=== PATIENT | female | born 1950 | race Caucasian/White ===

== ENCOUNTER 2016-11-01 08:46 | Emergency (ER) | payer MEDICARE ==
[2016-11-01 10:06] LABS: Hematocrit 43.8 % (37.0-47.0); Hemoglobin 14.7 gm/dL (12.5-16.0); Mean Cell Volume 87.1 fl (78-100); Mean Corpuscular Hemoglobin 29.2 pg (27-31); Mean Corpuscular Hgb Conc 33.6 g/dl (32-36); Mean Platelet Volume 9.8 fl (6.0-9.5); Neutrophil # 5.6 K/mm3 (1.3-6.0); Neutrophil % 64.7 % (42-75.0); Platelet Count 288 K/mm3 (150-450); Red Blood Count 5.03 M/mm3 (4.2-5.4); Red Cell Distribution Width 14.9 % (11.5-14.0); White Blood Count 8.6 K/mm3 (4.0-10.5)
[2016-11-01 10:17] LABS: Albumin * 3.5 gm/dl (3.4-5.0); Anion Gap 14.1 mmol/L (6.8-13.8); BUN/Creatinine Ratio 17.3 (9.0-21.6); Bilirubin, Total 0.5 mg/dL (0.0-1.1); Ca. Corrected For Albumin 8.9 mg/dL (8.4-10.2); Calcium * 8.8 mg/dL (7.9-10.9); Carbon Dioxide 23.1 mmol/L (24-32.6); Potassium 4.2 mmol/L (3.4-4.6); Total Protein 8.4 gm/dL (6.2-8.2)
--- OUTSIDE RECORDS SUMMARY | 2016-11-01 10:18 | XMS REPORT | Continuity of Care Document ---
:1950 Author Organization [facility] ([facility]) Address [address] [place] [address] Phone [phone] Care Team Providers Name Role Phone Rafal Gutierrez Primary Care Provider [phone] Source Comments This disclosure is being made pursuant to the Care Everywhere program, applicable federal and state laws, and may not contain all informaitonavailable regarding this patient.[facility] ([facility]) Active Allergies and Adverse Reactions Allergen Noted Date Severity Reactions Comments Codeine 01/15/2013 Urticaria (Hives) Oxycodone Urticaria (Hives) Current Medications Prescription Sig. Disp. Refills Start Date End Date Status aspirin 81 mg chewable Take 1 tablet 30 tablet 11 06/23/2015 Active tablet (81 mg total) by mouth daily nitroglycerin Place 1 tablet 25 tablet 11 06/23/2015 Active (NITROSTAT) 0.4 mg SL (0.4 mg total) tablet under the tongue every 5 minutes as needed sucralfate 1000 mg Take 1 tablet 40 tablet 0 01/21/2016 Active tablet (1,000 mg total) by mouth before meals and at bedtime. polyethylene Take as directed 4000 mL 0 03/16/2016 Active glycol-electrolyte the evening (GOLYTELY) suspension before your procedure. FLUoxetine 20 mg Take 3 capsules 270 capsule 3 06/21/2016 Active capsule (60 mg total) by mouth daily. clopidogrel 75 mg Take 1 tablet 90 tablet 11 06/30/2016 Active tablet (75 mg total) by mouth daily. simvastatin 40 mg Take 1 tablet 90 tablet 11 07/03/2016 Active tablet (40 mg total) by mouth every evening. metoPROLol tartrate 25 Take 1 tablet 180 tablet 11 09/25/2016 Active mg tablet (25 mg total) by mouth 2 times daily. traZODone 150 mg Take 1 tablet 90 tablet 11 09/25/2016 Active tablet (150 mg total) by mouth at bedtime. benazepril 40 mg Take 1 tablet 90 tablet 4 09/27/2016 Active tablet (40 mg total) by mouth daily. isosorbide mononitrate Take 1 tablet 90 tablet 4 09/27/2016 Active 30 mg CR tablet (30 mg total) by mouth every morning. Active Problems Problem Noted Date Encounter for screening colonoscopy 01/21/2016 Encounter for screening mammogram for malignant neoplasm of breast 01/21/2016 Glucose intolerance (impaired glucose tolerance) 05/21/2014 Lung nodules 12/14/2010 Overview: Noted 2007. Stable as of 06/29 Chronic left shoulder pain 08/15/2010 Overview: Subacromial bursitis, acromio-clavicular joint arthritis, chronic rotator cuff dysfunction and impingement syndrome. Trochanteric Bursitis, left 12/05/2007 CAD in [place] artery 09/20/2007 Overview: GONZALEZ to LCx in 2005 STEMI 01/2014: s/p PROMUS 2.75x20 to proximal LAD (80% LDPA and 100% mid RCA) Coronary angiogram in 03/2016: unchanged Depression 06/26/2006 Acquired deformity R foot 11/29/2004 Lupus erythematosus 02/13/2001 Overview: vs. Undifferentiated connective tissue disease. Manifestations: SLE- type rash, polyarthritis, Raynaud's Serology: Positive JONATHAN. Negative ds DNA, [employer]/Sm, SSA, SSB. Rx history: hydroxychloroquine since . Pure hypercholesterolemia 12/19/2000 Essential hypertension 12/19/2000 Resolved Problems Problem Noted Date Resolved Date LLQ abdominal pain 01/21/2016 03/14/2016 Chronic systolic heart failure 03/31/2014 03/31/2014 Overview: LVEF 45% (01/2014) STEMI (ST elevation myocardial infarction) 01/31/2014 03/31/2014 Diarrhea 11/14/2011 04/04/2013 Screening 11/14/2011 03/31/2014 Tobacco dependence 03/25/2009 03/14/2016 Overview: Dreams on Chantix Most Recent Encounters Date Type Specialty Providers Description 09/27/2016 Refill General Internal Rafal Gutierrez Dx: Essential Medicine JMD hypertension (Primary Dx) 09/25/2016 Refill General Internal Rafal Gutierrez Dx: Coronary artery Medicine MD Derick disease involving [place] coronary artery of [place] heart without angina pectoris (Primary Dx) 08/08/2016 Orders Only Care Coordination Rafal Gutierrez MD Immunizations Name Dates Previously Given Next Due Influenza, PF 08/09/2010 Influenza, high dose 06/21/2016,09/14/2015 Influenza, quadrivalent PF 06/11/2014 Influenza, unspecified 07/06/2008,08/15/2007,06/26/2006,06/22 Pneumococcal Conjugate, PCV13 (Prevnar 02/16/2015 13) Pneumococcal Polysaccharide, PPSV23 10/24/2013,08/15/2007 (Pneumovax 23) Td, adult unspecified 06/08/2004 Tdap 11/14/2011 Zoster, live (Zostavax) 04/04/2013 Social History Tobacco Use Types Packs/Day Years Used Date Former Smoker Cigarettes 1 3 Quit: 05/12/2014 Smokeless Tobacco: Former User Tobacco Cessation:Ready to Quit: Yes; Counseling Given: Yes Comments: Alcohol Use Drinks/Week oz/Week Comments No 1 Glasses of wine 0.0 generally consumed all at once 6-8 Cans of beer Last Filed Vital Signs Vital Sign Reading Time Taken Blood Pressure 138/78 07/11/2016 10:47 AM EVENT DESIGNER Pulse 68 07/11/2016 10:47 AM EVENT DESIGNER Temperature 37 C (98.6 F) 06/21/2016 12:58 PM CDT Respiratory Rate 14 07/11/2016 10:47 AM EVENT DESIGNER Height 1.6 m (5' 3") 07/11/2016 10:47 AM EVENT DESIGNER Weight 89.812 kg (198 lb) 07/11/2016 10:47 AM EVENT DESIGNER Body Mass Index 35.08 07/11/2016 10:47 AM EVENT DESIGNER Oxygen Saturation 94% 03/20/2016 11:51 AM CDT Plan of Care Patient Goal Type Goal Lifestyle Other Date Type Specialty Providers Description 07/17/2017 Appointment Heart and Vascular Patricia Genao, Subj: Appointment Scheduled [address] [place] [address] [phone] (Fax) Health Maintenance Due Date Last Done Comments Hepatitis B Vaccine (1 of 3 1950 - Primary Series) Mammogram 02/02/2017 02/03/2016, 02/03/2016 Additional history (Completed outside this exists hospital or clinic), 01/21/2016 Lipid Disorder Screening 02/01/2019 02/01/2014, 10/01/2012, Additional history 11/14/2011 exists Colonoscopy 08/09/2020 08/09/2010 (Declined) Td Vaccine 11/13/2021 11/14/2011, 06/08/2004 HCV Screening Completed 06/09/1999, 12/16/1998 Osteoporosis Screening (DXA Completed 09/29/2003 Bone Density) Tdap Vaccine Completed 11/14/2011 Zoster Vaccine Completed 04/04/2013 Pneumococcal Vaccine Completed 02/16/2015, 10/24/2013, 08/15/2007 Influenza Vaccine: Seasonal Completed 06/21/2016, 09/14/2015, Additional history 06/11/2014 exists Results from Last 3 Months FECAL OCCULT BLOOD - IMMUNOCHEMICAL (HEMOCCULT ICT) (09/08/2016 8:00 AM) Component Value Range Fecal Occult Blood, Hemoccult ICT Negative Negative Specimen Stool
[2016-11-01 11:49] VITALS: BP 136/78
--- NOTE | 2016-11-01 13:02 | ERNOTE ---
Head Injury HPI - Narrative Date of Service: 11/01/16 - General Injury to: face Time Seen by Provider: 11/01/16 09:40 Source: patient Exam Limitations: no limitations - Immun/Allergies/Home Medications Allergies/Adverse Reactions: Allergies Allergy/AdvReac Type Severity Reaction Status Date / Time No Known Allergies Allergy Verified 11/01/16 08:58 Home Medications: HOME MEDICATIONS Benazepril HCl [Lotensin] 40 mg PO DAILY 08/27/14 [Last Taken Unknown] Clopidogrel Bisulfate [Plavix] 75 mg PO DAILY 08/27/14 [Last Taken Unknown] Isosorbide Mononitrate [Imdur] 30 mg PO DAILY 08/27/14 [Last Taken Unknown] Metoprolol Succinate [Toprol Xl] 25 mg PO DAILY 08/27/14 [Last Taken Unknown] Simvastatin [Zocor] 40 mg PO HS 08/27/14 [Last Taken Unknown] Trazodone HCl [Oleptro ER] 150 mg PO HS 08/27/14 [Last Taken Unknown] Amox Tr/Potassium Clavulanate [Augmentin 875-125 Tablet] 1 tab PO Q12H #20 tab 11/01/16 [Last Taken Unknown] Aspirin [Aspirin Enteric Coated] 81 mg PO DAILY 11/01/16 [Last Taken Unknown] Fluoxetine HCl 20 mg PO DAILY 11/01/16 [Last Taken Unknown] Ibuprofen [Motrin] 1 tab PO Q8H PRN #60 tab 11/01/16 [Last Taken Unknown] - History of Present Illness Narrative: Presents with c/o painful swelling to left side of her face just anterior to her left ear. Ongoing for 2 days. Denies any fever of chills. Occurred: other - 2 days ago. Review of Systems - Review of Systems Constitutional: Present: no symptoms reported EYE: Present: no symptoms reported ENT: Present: no symptoms reported Respiratory: Present: no symptoms reported Cardiology: Present: no symptoms reported Gastrointestinal/Abdominal: Present: no symptoms reported Genitourinary: Present: no symptoms reported Musculoskeletal: Present: no symptoms reported Skin: Present: See HPI Neurological: Present: no symptoms reported Endocrine: Present: no symptoms reported Hematologic/Lymphatic: Present: no symptoms reported Psych: Present: no symptoms reported All Other Systems: All systems neg except as marked - Patient's Past Medical History Patient History - Medical: Depression, GERD, Hypothyroidism Patient History - Surgical Procedures: Hysterectomy, T & A, Other - Social History Living Situations: home Alcohol Use: none Drug Use: none Physical Exam - Physical Exam General Appearance: Present: wd/wn, alert, no apparent distress Eye Exam: Normal inspection: bilateral, PERRL: bilateral, EOMI: bilateral Ears, Nose, Throat: Present: normal ENT inspection, normal pharynx Neck: Present: supple, full range of motion - Tenders swelling of left parotid gland, warm to touch, mild erythema. , other Respiratory: Present: no respiratory distress, normal breath sounds, no accessory muscle use, chest nontender, lungs clear Cardiovascular/Chest: Present: regular rate, rhythm, no murmur, normal peripheral pulses Neurological Exam: Present: alert, oriented, normal mood/affect, no motor/ sensory deficits ED Progress - Vital Signs Vital Signs: Vital Signs 11/01/16 11/01/16 08:55 11:48 Temperature 37.0 C Pulse Rate 68 62 Respiratory 12 18 Rate Blood Pressure 110/71 136/78 O2 Sat by Pulse 93 95 Oximetry - Progress/Reassessment Chief Complaint: Neck Pain/Injury Departure Clinical Impression: Parotitis, acute, Mass of upper lobe of right lung - Departure Disposition: Home self-care Condition: Good Instructions: Parotitis, [id number] Additional Instructions: A lung mass was incidentally found in your right upper lung. Please follow up with your PCP to revaluate this mass with a CT scan of your chest. We are unable to perform a chest CT this moment due to recent IV contrast given you for your parotid swelling. Prescriptions: Amox Tr/Potassium Clavulanate [Augmentin 875-125 Tablet] 1 tab PO Q12H #20 tab Ibuprofen [Motrin] 1 tab PO Q8H PRN #60 tab PRN Reason: Pain
== END 2016-11-01 12:46 | disposition home or self-care (01) ==
LOC: ER 08:46
DX: K11.21 Acute sialoadenitis (principal); R91.8 Other nonspecific abnormal finding of lung field; F32.9 Major depressive disorder, single episode, unspecified

== ENCOUNTER 2017-07-16 13:30 | Inpatient (IN) | payer MEDICARE ==
--- NOTE | 2017-07-16 14:19 | ERNOTE ---
Dyspnea - General Presenting Symptoms: shortness of breath Time Seen by Provider: 07/16/17 13:45 Source: patient, family Exam Limitations: no limitations - Immun/Allergies/Home Medications Immunizations: IMMUNIZATION HX Immunizations Up to Date Yes History of Influenza Vaccine Yes Hx Pneumococcal Vaccination Yes Allergies/Adverse Reactions: Allergies No Known Allergies Allergy (Verified 07/16/17 13:39) Home Medications: HOME MEDICATIONS Clopidogrel Bisulfate [Plavix] 75 mg PO DAILY 08/27/14 [Last Taken Unknown] Isosorbide Mononitrate [Imdur] 30 mg PO DAILY 08/27/14 [Last Taken Unknown] Metoprolol Succinate [Toprol Xl] 25 mg PO DAILY 08/27/14 [Last Taken Unknown] Simvastatin [Zocor] 40 mg PO HS 08/27/14 [Last Taken Unknown] traZODone HCL [Oleptro ER] 150 mg PO HS 08/27/14 [Last Taken Unknown] Aspirin [Aspirin Enteric Coated] 81 mg PO DAILY 11/01/16 [Last Taken Unknown] FLUoxetine HCL [Fluoxetine HCl] 20 mg PO DAILY 11/01/16 [Last Taken Unknown] Ibuprofen [Motrin] 1 tab PO Q8H PRN #60 tab 11/01/16 [Last Taken Unknown] Albuterol Sulfate [Proair Respiclick] 90 mcg IH TID 07/16/17 [Last Taken Unknown ] Magnesium Oxide [Mgo] 400 mg PO DAILY 07/16/17 [Last Taken Unknown] Nitroglycerin 0.4 mg SL PRN PRN 07/16/17 [Last Taken Unknown] - History of Present Illness Narrative: Patient presents with progressive shortness of breath over the last week. While she has known lung cancer that had undergone radiation treatment certainly this year, she has not undergone any chemotherapy. She states she is feeling a little bit presyncopal as well. Severity: moderate Initiating event: Reports: none Frequency of episodes: Reports: occassional episodes Modifying Factors (Worsens): Reports: activity Associated Symptoms-Dyspnea: Reports: other - feeling faint Review of Systems - Review of Systems Constitutional: Present: See HPI EYE: Present: no symptoms reported ENT: Present: no symptoms reported Respiratory: Present: shortness of breath, cough Cardiology: Present: no symptoms reported Gastrointestinal/Abdominal: Present: no symptoms reported Genitourinary: Present: no symptoms reported Musculoskeletal: Present: no symptoms reported Skin: Present: no symptoms reported Neurological: Present: no symptoms reported Endocrine: Present: no symptoms reported Hematologic/Lymphatic: Present: no symptoms reported Psych: Present: no symptoms reported - Patient's Past Medical History Patient History - Medical: Depression, GERD, Hypothyroidism Patient History - Cardiac/Respiratory: Hypertension, Hyperlipidemia Patient History - Cancer: Lung Patient History - Surgical Procedures: Cardiac stent, Hysterectomy, T & A, Other Patient History - Other: Immunosuppresive Tx >3mo LMP (females 10-50): post - Social History Living Situations: home Psych History: No pertinent hx Smoking Status: Never smoker Alcohol Use: none Drug Use: none - Immunizations Immunizations Up to Date: Yes Hx Pneumococcal Vaccination: Yes History of Influenza Vaccine: Yes Physical Exam - Physical Exam General Appearance: Present: wd/wn, alert, mild distress Head Exam: Present: normal inspection Eye Exam: Normal inspection: bilateral, PERRL: bilateral Ears, Nose, Throat: Present: normal ENT inspection, H, normal pharynx Neck: Present: normal inspection, nontender Respiratory: Present: no accessory muscle use, chest nontender, respiratory distress - mild although she feels somewhat better on 2 L of O2, rales - questionable right upper lobe, rhonchi - in the bases Cardiovascular/Chest: Present: regular rate, rhythm, no murmur, normal peripheral pulses Gastrointestinal/Abdominal: Present: normal bowel sounds, nontender, nondistended, soft, no organomegaly Rectal Exam: Present: deferred Back Exam: Present: normal inspection, normal range of motion Extremity Exam: Present: normal inspection, non-tender, no edema, normal range of motion Neurological Exam: Present: alert, oriented, normal mood/affect Skin Exam: Present: normal color, warm/dry Lymphatic Exam: Present: no adenopathy ED Progress - Results and Orders Patient's Lab Results:: I have reviewed the patient's lab results. - Vital Signs Patient's Vital Signs:: I have reviewed the patient's vital signs. Vital Signs: Vital Signs 07/16/17 07/16/17 13:32 13:39 Temperature 37.3 C 37.3 C Pulse Rate 100 100 Respiratory 22 H 22 H Rate Blood Pressure 132/77 132/77 O2 Sat by Pulse 92 92 Oximetry - EKG EKG: NSR - X-Ray X-Ray #1 X-Ray: chest Interpretation: Reviewed by me - Progress/Reassessment Chief Complaint: Dyspnea Plan - Plan Plan: Good discussion with both radiologist and Dr. Gupta with best how to manage this patient. Patient has a known lung mass and appears to have scarring post radiation with what appears to be an obstructive pneumonitis. Both pneumonia and PE can not be excluded. Patient has markedly reduced her fluid intake which has put her into stage III renal insufficiency, making a chest CT with IV contrast problematic. Patient will need to be admitted for both her COPD exacerbation, obstructive pneumonitis/pneumonia and possible PE. Subcutaneous Lovenox was given to the patient here in the emergency department, blood cultures were undertaken and IV Rocephin was given. Departure Clinical Impression: Obstructive pneumonia COPD (chronic obstructive pulmonary disease) Qualifiers: COPD type: COPD with acute exacerbation Qualified Code(s): J44.1 - Chronic obstructive pulmonary disease with (acute) exacerbation Lung cancer Qualifiers: Laterality: right Lung location: upper lobe of lung Qualified Code(s): C34.11 - Malignant neoplasm of upper lobe, right bronchus or lung - Departure Disposition: [facility] Condition: Fair Referrals: Jessica Garcia DO [Primary Care Provider] -
[2017-07-16 14:31] LABS: Hematocrit 36.3 % (37.0-47.0); Hemoglobin 12.2 gm/dL (12.5-16.0); Mean Cell Volume 85.2 fl (78-100); Mean Corpuscular Hemoglobin 28.6 pg (27-31); Mean Corpuscular Hgb Conc 33.6 g/dl (32-36); Mean Platelet Volume 9.5 fl (6.0-9.5); Neutrophil # 5.9 K/mm3 (1.3-6.0); Platelet Count 332 K/mm3 (150-450); Red Blood Count 4.26 M/mm3 (4.2-5.4); Red Cell Distribution Width 15.1 % (11.5-14.0); White Blood Count 7.9 K/mm3 (4.0-10.5)
[2017-07-16 14:55] LABS: ALT 28 U/L (19-67); AST 36 U/L (0-48); Albumin * 3.1 gm/dl (3.4-5.0); Alkaline Phosphatase * 110 U/L (50-170); Anion Gap 18.5 mmol/L (6.8-13.8); BUN/Creatinine Ratio 19.7 (9.0-21.6); Bilirubin, Total 0.4 mg/dL (0.0-1.1); Blood Urea Nitrogen 29 mg/dL (3-23); Ca. Corrected For Albumin 9.7 mg/dL (8.4-10.2); Calcium * 9.3 mg/dL (7.9-10.9); Carbon Dioxide 20.4 mmol/L (24-32.6); Chloride 102 mmol/L (97-106); Glucose * 129 mg/dL (70-110); Magnesium 1.9 mg/dL (1.2-2.8); Potassium 3.9 mmol/L (3.4-4.6); Sodium 137 mmol/L (132-142); Total Protein 8.7 gm/dL (6.2-8.2); Troponin I Less than 0.017 ng/ml (0.00-0.10)
[2017-07-16] MEDS ORDERED: ENOXAPARIN SODIUM 80 MG/0.8 ML DISP.SYRIN SC ONE ×2 (15:18→15:24)
[2017-07-16] MEDS ORDERED: NORMAL SALINE 1,000 ML IV ONE (15:19)
[2017-07-16] MEDS ORDERED: NITROGLYCERIN 0.4 MG/TAB BTL SL PRN (21:11)
--- NOTE | 2017-07-16 21:19 | HP ---
Chief Complaint - Chief Complaint Date of Service: 07/16/17 Time of Service: 21:18 Chief Complaint: Dyspnea History of Present Illness: 67 years old female adm to the hospital with reports of non productive cough, sudden shortness of breath and chest pain that worsen with deep breathing x 3 days. PMH significant for Right lung cancer, S/p chemo and radiation completed treatment was February 2017. COPD, HTN and hyperlipidemia. pt stated today her s/s got worst she called her Oncologist who instructed her to come to the ER for CXR , due to suspicion for pneumonia. In ER D-Dimer 1.53, pt has and elevated cre 1.47 will hydrate and attempt to obtain CT chest tomorrow. see radiologist report for CXR. Lovenox was given in ER due to suspicion for PE and Rocephin given due to COPD exacerbation. Plan of care discussed with pt she verbalized understanding and agrees. - Patient's Past Medical History Patient History - Medical: No pertinent hx Patient History - Cardiac/Respiratory: COPD, Hypertension, Hyperlipidemia Patient History - Cancer: Lung Patient History - Surgical Procedures: Cardiac stent, Hysterectomy, T & A Patient History - Other: Immunosuppresive Tx >3mo LMP (females 10-50): Menopausal - Family History Mother Family History - Medical: Family History - Cardiac/Respiratory: Hypertension, Hyperlipidemia Family History - Cancer: No pertinent family hx Father Family History - Medical: , No pertinent hx Family History - Cardiac/Respiratory: Myocardial Infarction Family History - Cancer: No pertinent family hx - Social History Living Situations: significant other Abuse History: No History of abuse Psych History: Hx of Depression Smoking Status: Never smoker Have you smoked in the past 12 months: No Do you dip or chew tobacco: No Alcohol Use: none Drug Use: none - Immunizations Immunizations Up to Date: Yes Hx Pneumococcal Vaccination: Yes History of Influenza Vaccine: Yes Allergies/Adverse Reactions: Allergies Allergy/AdvReac Type Severity Reaction Status Date / Time No Known Allergies Allergy Verified 07/16/17 16:54 Home Medications: HOME MEDICATIONS Clopidogrel Bisulfate [Plavix] 75 mg PO DAILY 08/27/14 [Last Taken 07/15/17 09: 00] Isosorbide Mononitrate [Imdur] 30 mg PO DAILY 08/27/14 [Last Taken 07/15/17 09: 00] Metoprolol Succinate [Toprol Xl] 25 mg PO BID 08/27/14 [Last Taken 07/15/17 21: 00] Simvastatin [Zocor] 40 mg PO HS 08/27/14 [Last Taken 07/15/17 21:00] traZODone HCL [Oleptro ER] 150 mg PO HS 08/27/14 [Last Taken Unknown] Aspirin [Aspirin Enteric Coated] 81 mg PO DAILY 11/01/16 [Last Taken 07/15/17 09 :00] FLUoxetine HCL [Fluoxetine HCl] 20 mg PO DAILY 11/01/16 [Last Taken 07/15/17 09: 00] Ibuprofen [Motrin] 1 tab PO Q8H PRN #60 tab 11/01/16 [Last Taken Unknown] Albuterol Sulfate [Proair Respiclick] 90 mcg IH TID 07/16/17 [Last Taken Unknown ] Magnesium Oxide [Mgo] 400 mg PO DAILY 07/16/17 [Last Taken 07/15/17 09:00] Nitroglycerin 0.4 mg SL PRN PRN 07/16/17 [Last Taken Unknown] Exam - Exam Vital Signs: Vital Signs - Last Taken Temp 36.9 C 07/16/17 18:57 Pulse 88 07/16/17 18:57 Resp 28 H 07/16/17 18:57 BP 114/62 07/16/17 18:57 Pulse Ox 91 07/16/17 18:57 Diagnostic Studies: Laboratory Results WBC 7.9 K/mm3 (4.0-10.5) 07/16/17 14:12 RBC 4.26 M/mm3 (4.2-5.4) 07/16/17 14:12 Hgb 12.2 gm/dL (12.5-16.0) L 07/16/17 14:12 Hct 36.3 % (37.0-47.0) L 07/16/17 14:12 MCV 85.2 fl (78-100) 07/16/17 14:12 MCH 28.6 pg (27-31) 07/16/17 14:12 MCHC 33.6 g/dl (32-36) 07/16/17 14:12 RDW 15.1 % (11.5-14.0) H 07/16/17 14:12 Plt Count 332 K/mm3 (150-450) 07/16/17 14:12 MPV 9.5 fl (6.0-9.5) 07/16/17 14:12 Immature Gran % (Auto) 0.40 % (0.001-0.429) 07/16/17 14:12 Immature Gran # (Auto) 0.03 K/mm3 (0.000-0.0310) 07/16/17 14:12 Neutrophils % 74.0 % (42-75.0) 07/16/17 14:12 Lymphocytes % 12.8 % (20-51) L 07/16/17 14:12 Monocytes % 10.9 % (0.0-9) H 07/16/17 14:12 Eosinophils % 1.6 % (0.0-3.0) 07/16/17 14:12 Basophils % 0.3 % (0.0-1.0) 07/16/17 14:12 Nucleated RBC % 0.0 k/mm3 (0-1) 07/16/17 14:12 Neutrophils # 5.9 K/mm3 (1.3-6.0) 07/16/17 14:12 Lymphocytes # 1.0 k/mm3 (1.5-3.5) L 07/16/17 14:12 Monocytes # 0.9 k/mm3 (0.0-1.0) 07/16/17 14:12 Eosinophils # 0.1 k/mm3 (0.0-0.7) 07/16/17 14:12 Absolute Basophils 0.0 k/mm3 (0.0-0.1) 07/16/17 14:12 D-Dimer 1.53 mg/L (0.19-0.49) H 07/16/17 14:25 Sodium 137 mmol/L (132-142) 07/16/17 14:25 Plasma Sodium 137 mmol/L (130-142) 07/16/17 14:25 Potassium 3.9 mmol/L (3.4-4.6) 07/16/17 14:25 Chloride 102 mmol/L (97-106) 07/16/17 14:25 Carbon Dioxide 20.4 mmol/L (24-32.6) L 07/16/17 14:25 Anion Gap 18.5 mmol/L (6.8-13.8) H 07/16/17 14:25 BUN 29 mg/dL (3-23) H D 07/16/17 14:25 Creatinine 1.47 mg/dL (0.4-1.4) H D 07/16/17 14:25 Est GFR (Non-Af Amer) 37 mL/min (60-130) L D 07/16/17 14:25 BUN/Creatinine Ratio 19.7 (9.0-21.6) 07/16/17 14:25 Random Glucose 129 mg/dL (70-110) H 07/16/17 14:25 Calcium 9.3 mg/dL (7.9-10.9) 07/16/17 14:25 Calcium Adj for Albumin 9.7 mg/dL (8.4-10.2) 07/16/17 14:25 Magnesium 1.9 mg/dL (1.2-2.8) 07/16/17 14:25 Total Bilirubin 0.4 mg/dL (0.0-1.1) 07/16/17 14:25 AST 36 U/L (0-48) 07/16/17 14:25 ALT 28 U/L (19-67) 07/16/17 14:25 Alkaline Phosphatase 110 U/L (50-170) 07/16/17 14:25 Troponin I Less than 0.017 ng/ml (0.00-0.10) 07/16/17 14:25 Total Protein 8.7 gm/dL (6.2-8.2) H 07/16/17 14:25 Albumin 3.1 gm/dl (3.4-5.0) L 07/16/17 14:25 Assessment/Plan - Narrative Narrative: Acute on chronic COPD exacerbation pt stated she had shortness of breath and cough x3 days CXR: noted Continue with Rocephin and monitor Supplemented oxygen Blood culture and sputum culture pending Neb treatment and encourage use of cornet. Continue with IVF and Inhaled steriods ? Pulmonary embolism pt stated she have sudden onset of chest pain with deep breathing She denies any recent travel, pain to calf On adm D-Dimer 1.53 Unable to obtain CTA pt with THAIS Will hydrate and obtain in the morning when Cre improve Lovenox was given in ER with continue BID Right Lung Cancer S/P hemo and Radiation, treatment completed February 2017 Pt follow up with Oncologist in [place]. THAIS- like due to poor oral intake pt stated she hate water and haven't be drinking On adm Bun/ Cre /.47 Continue with IVF hydration Strict I/O Monitor BMP in AM Code status: Full VTE ppx: Therapeutic Lovenox GI ppx: Pepcid Time 40 minutes and case discussed with Dr Gupta. - Assessment/Plan (1) COPD (chronic obstructive pulmonary disease) Problem: Acute Qualifiers: COPD type: COPD with acute exacerbation Qualified Code(s): J44.1 - Chronic obstructive pulmonary disease with (acute) exacerbation (2) Lung cancer Problem: Chronic Qualifiers: Laterality: right Lung location: upper lobe of lung Qualified Code(s): C34.11 - Malignant neoplasm of upper lobe, right bronchus or lung (3) THAIS (acute kidney injury) Problem: Acute
[2017-07-17] MEDS: ENOXAPARIN SODIUM 80 MG/0.8 ML DISP.SYRIN SC SCH ×2 (05:21→06:04)
[2017-07-17] MEDS ORDERED: BUDESONIDE 0.5 MG/2 ML VIAL.NEB IH ONE (05:29)
[2017-07-17] MEDS ORDERED: ALBUTEROL SULFATE 2.5 MG/0.5 ML VIAL.NEB IH ONE (05:29)
[2017-07-17] MEDS ORDERED: ENOXAPARIN SODIUM 40 MG/0.4 ML SYRG SC ONE (05:59)
[2017-07-17] MEDS: ALBUTEROL SULFATE 2.5 MG/0.5 ML VIAL.NEB IH SCH ×3 (06:10→19:29)
[2017-07-17] MEDS: BUDESONIDE 0.5 MG/2 ML VIAL.NEB IH SCH ×2 (06:12→19:30)
[2017-07-17 06:15] LABS: Anion Gap 13.6 mmol/L (6.8-13.8); BUN/Creatinine Ratio 19.5 (9.0-21.6); Carbon Dioxide 23.3 mmol/L (24-32.6); Estimated Creat Clear 31.6; Potassium 3.9 mmol/L (3.4-4.6)
[2017-07-17] MEDS: ASPIRIN 81 MG TABLET.DR PO SCH (08:59)
[2017-07-17] MEDS: METOPROLOL SUCCINATE 25 MG TABLET.SA PO SCH ×2 (09:00→20:35)
[2017-07-17] MEDS: FLUoxetine HCL 20 MG CAPSULE PO SCH (09:00)
[2017-07-17] MEDS: CLOPIDOGREL BISULFATE 75 MG TABLET PO SCH (09:00)
[2017-07-17] MEDS: ISOSORBIDE MONONITRATE 30 MG TAB.SR.24H PO SCH (09:00)
[2017-07-17] MEDS: FAMOTIDINE 20 MG TABLET PO SCH (09:00)
[2017-07-17] MEDS ORDERED: BUDESONIDE 0.5 MG/2 ML VIAL.NEB IH SCH (09:00)
[2017-07-17] MEDS: MAGNESIUM OXIDE 400 MG TABLET PO SCH (09:00)
[2017-07-17] MEDS ORDERED: NORMAL SALINE 1,000 ML IV PRN (14:12)
[2017-07-17] MEDS: ENOXAPARIN SODIUM 40 MG/0.4 ML SYRG SC SCH (15:06)
[2017-07-17] MEDS: SIMVASTATIN 40 MG TABLET PO SCH (20:35)
[2017-07-17] MEDS: traZODone HCL 150 MG TABLET PO SCH (20:36)
[2017-07-18] MEDS: ALBUTEROL SULFATE 2.5 MG/0.5 ML VIAL.NEB IH SCH ×3 (06:05→19:24)
[2017-07-18] MEDS: BUDESONIDE 0.5 MG/2 ML VIAL.NEB IH SCH ×2 (06:08→19:25)
[2017-07-18] MEDS: CLOPIDOGREL BISULFATE 75 MG TABLET PO SCH (08:25)
[2017-07-18] MEDS: FAMOTIDINE 20 MG TABLET PO SCH (08:25)
[2017-07-18] MEDS: METOPROLOL SUCCINATE 25 MG TABLET.SA PO SCH (08:25)
[2017-07-18] MEDS: ASPIRIN 81 MG TABLET.DR PO SCH (08:25)
[2017-07-18] MEDS: ISOSORBIDE MONONITRATE 30 MG TAB.SR.24H PO SCH (08:27)
[2017-07-18] MEDS: FLUoxetine HCL 20 MG CAPSULE PO SCH (08:27)
[2017-07-18] MEDS: MAGNESIUM OXIDE 400 MG TABLET PO SCH (08:27)
[2017-07-18 11:13] LABS: Anion Gap 12.9 mmol/L (6.8-13.8); BUN/Creatinine Ratio 14.1 (9.0-21.6); Calcium * 8.8 mg/dL (7.9-10.9); Carbon Dioxide 22.2 mmol/L (24-32.6); Estimated Creat Clear 31.1; Potassium 4.1 mmol/L (3.4-4.6)
[2017-07-18] MEDS ORDERED: ACETAMINOPHEN 325 MG TABLET PO PRN (12:10)
[2017-07-18] MEDS: ENOXAPARIN SODIUM 40 MG/0.4 ML SYRG SC SCH (15:19)
[2017-07-18] MEDS: AZITHROMYCIN 500 MG in DEXTROSE 5 % IN WATER 250 ML IV SCH ×2 (16:50)
[2017-07-18] MEDS: predniSONE 20 MG TABLET PO SCH (16:51)
[2017-07-18] MEDS: METOPROLOL TARTRATE 25 MG TABLET PO SCH (20:57)
[2017-07-18] MEDS: traZODone HCL 150 MG TABLET PO SCH (20:57)
[2017-07-18] MEDS: SIMVASTATIN 40 MG TABLET PO SCH (20:58)
[2017-07-19] MEDS: ALBUTEROL SULFATE 2.5 MG/0.5 ML VIAL.NEB IH SCH ×3 (06:06→18:16)
[2017-07-19] MEDS: BUDESONIDE 0.5 MG/2 ML VIAL.NEB IH SCH ×2 (06:06→18:17)
[2017-07-19 06:18] LABS: Anion Gap 15.3 mmol/L (6.8-13.8); BUN/Creatinine Ratio 16.4 (9.0-21.6); Calcium * 9.3 mg/dL (7.9-10.9); Carbon Dioxide 23.1 mmol/L (24-32.6); Estimated Creat Clear 36.2; Potassium 4.4 mmol/L (3.4-4.6)
[2017-07-19] MEDS: MAGNESIUM OXIDE 400 MG TABLET PO SCH (08:59)
[2017-07-19] MEDS: CLOPIDOGREL BISULFATE 75 MG TABLET PO SCH (09:00)
[2017-07-19] MEDS: ASPIRIN 81 MG TABLET.DR PO SCH (09:01)
[2017-07-19] MEDS: predniSONE 20 MG TABLET PO SCH (09:04)
[2017-07-19] MEDS: FAMOTIDINE 20 MG TABLET PO SCH (09:05)
[2017-07-19] MEDS: FLUoxetine HCL 20 MG CAPSULE PO SCH (09:06)
[2017-07-19] MEDS: ISOSORBIDE MONONITRATE 30 MG TAB.SR.24H PO SCH (09:07)
[2017-07-19] MEDS: METOPROLOL TARTRATE 25 MG TABLET PO SCH ×2 (09:11→21:03)
[2017-07-19] MEDS: ENOXAPARIN SODIUM 40 MG/0.4 ML SYRG SC SCH (15:10)
[2017-07-19] MEDS ORDERED: traZODone HCL 150 MG TABLET PO PRN (15:13)
[2017-07-19] MEDS: AZITHROMYCIN 500 MG in DEXTROSE 5 % IN WATER 250 ML IV SCH ×2 (17:24)
[2017-07-19] MEDS ORDERED: FLU VACC QS2017-18(6MOS UP)/PF 60 MCG/0.5 ML SYRINGE IM ONE (18:00)
[2017-07-19] MEDS ORDERED: METOPROLOL TARTRATE 25 MG TABLET PO SCH (21:00)
[2017-07-19] MEDS: traZODone HCL 150 MG TABLET PO SCH (21:03)
[2017-07-19] MEDS: SIMVASTATIN 40 MG TABLET PO SCH (21:03)
[2017-07-20] MEDS: BUDESONIDE 0.5 MG/2 ML VIAL.NEB IH SCH (07:07)
[2017-07-20] MEDS: ALBUTEROL SULFATE 2.5 MG/0.5 ML VIAL.NEB IH SCH (07:07)
[2017-07-20] MEDS: ASPIRIN 81 MG TABLET.DR PO SCH (08:21)
[2017-07-20] MEDS: ISOSORBIDE MONONITRATE 30 MG TAB.SR.24H PO SCH (08:22)
[2017-07-20] MEDS: METOPROLOL TARTRATE 25 MG TABLET PO SCH (08:22)
[2017-07-20] MEDS: MAGNESIUM OXIDE 400 MG TABLET PO SCH (08:23)
[2017-07-20] MEDS: FAMOTIDINE 20 MG TABLET PO SCH (08:23)
[2017-07-20] MEDS: CLOPIDOGREL BISULFATE 75 MG TABLET PO SCH (08:23)
[2017-07-20] MEDS: predniSONE 20 MG TABLET PO SCH (08:24)
[2017-07-20] MEDS: FLUoxetine HCL 20 MG CAPSULE PO SCH (08:24)
[2017-07-20 10:13] VITALS: BP 144/84
--- NOTE | 2017-07-20 11:29 | DS ---
(1) Pneumonitis Problem: Acute (2) COPD (chronic obstructive pulmonary disease) Problem: Acute Qualifiers: COPD type: COPD with acute exacerbation Qualified Code(s): J44.1 - Chronic obstructive pulmonary disease with (acute) exacerbation Description of Stay: ADMISSION DATE: 07/16/2017 DISCHARGE DATE: 07/20/2017 ADMISSION HPI by ASAEL Remy: 67 years old female adm to the hospital with reports of non productive cough, sudden shortness of breath and chest pain that worsen with deep breathing x 3 days. PMH significant for Right lung cancer, S/p chemo and radiation completed treatment was February 2017. COPD, HTN and hyperlipidemia. pt stated today her s/s got worst she called her Oncologist who instructed her to come to the ER for CXR , due to suspicion for pneumonia. In ER D-Dimer 1.53, pt has and elevated cre 1.47 will hydrate and attempt to obtain CT chest tomorrow. see radiologist report for CXR. Lovenox was given in ER due to suspicion for PE and Rocephin given due to COPD exacerbation. Plan of care discussed with pt she verbalized understanding and agrees. HOSPITAL COURSE: The patient was admitted to the hospital for an acute exacerbation of COPD secondary to pneumonia/pneumonitis. The patient was treated with IV antibiotics and IV steroids with improvement of suspected. Overall, the patient s admission was uneventful and she was discharged back home in stable condition. FOLLOW-UP APPOINTMENTS: -PCP, Dr. Garcia, within 1 week NEW OR CHANGED MEDICATIONS: -Azithromcyin 500mg PO daily X 3 additional days -Prednisone 40mg PO daily X 3 additional days DISCONTINUED MEDICATIONS: None RADIOLOGY REPORTS: PA and lateral chest x-ray on 07/16/2017: 1.Hyperinflated lung volumes, with emphysematous changes, stable. 2.Previously noted masslikefinding in the right upper lobe has decreased in prominence although in its place, there is an ill-defined opacity on the current examination. The obesity itself is larger and overall extent than the previously seen mass although the area which contain the mass appears to be more hyperlucent on the current examination. This is probably related to treatment related changes (i.e. lobectomy, radiation treatment), although superimposed infection or even recurrent mass on radiographs are difficult to exclude entirely. 3.No pneumothorax or pleural fluid collections. 4.Mild cardiomegaly slightly decreased in prominence in comparison with the prior study. 5.There is slight tracheal shift to the right suggestive of right-sided volume loss. 6.Bone showed degenerative changes of the spine. CT angiogram of the chest on 07/17/2017: 1.Negative for acute pulmonary thromboembolism. 2.Negative for acute thoracic aortic finding. 3.Decreased size of the right upper lobe mass. 4.Persistent and grossly stable right hilar lymphadenopathy. 5.There is interlobular septal thickening, groundglass opacities in both lungs but especially around the right upper lobe mass, with associated bronchial wall thickening involving the right upper lobe, bronchus intermedius, and the right lower lobe. Most likely related to treatment related changes, if the patient has had radiation treatment for the right upper lobe mass. Also consider superimposed infection or pulmonary edema. Procedures Performed: none Discharge Disposition: Home self care Disposition: Home self-care Condition: Stable Discharge Activity: Activity as tolerated Discharge Diet: General/regular food, Resume usual diet Referrals: Jessica Garcia, [Primary Care Provider] - Problem Oriented Discharge Instructions to Patient/Family: Chronic Obstructive Pulmonary Disease Exacerbation, [id number] Additional Patient Instructions (free text): Please make TCM appointment, unless senior living discharge. Thank you! Azul @ [phone]. Follow-up with PCP within 1 week with Jessica Garcia on 07-27-17 @ 10:30am. Prescriptions (Any new or edited meds): Azithromycin [Zithromax] 500 mg PO DAILY #3 tab predniSONE [Prednisone] 40 mg PO DAILY #3 tablet Complete Home Medications List: Complete Home Medication List: Clopidogrel Bisulfate [Plavix] 75 mg PO DAILY 08/27/14 Isosorbide Mononitrate [Imdur] 30 mg PO DAILY 08/27/14 Simvastatin [Zocor] 40 mg PO HS 08/27/14 Aspirin [Aspirin Enteric Coated] 81 mg PO DAILY 11/01/16 FLUoxetine HCL [Fluoxetine HCl] 20 mg PO DAILY 11/01/16 Albuterol Sulfate [Proair Respiclick] 90 mcg IH TID 07/16/17 Magnesium Oxide [Mgo] 400 mg PO DAILY 07/16/17 Nitroglycerin 0.4 mg SL PRN PRN 07/16/17 traZODone HCL [Trazodone HCl] 150 mg PO HS 11/28/17 Metoprolol Tartrate [Lopressor] 25 mg PO BID 07/19/17 Azithromycin [Zithromax] 500 mg PO DAILY #3 tab 07/20/17 predniSONE [Prednisone] 40 mg PO DAILY #3 tablet 07/20/17
--- NOTE | 2017-07-21 10:57 | PN ---
Subjective - Date and Time Seen Date: 07/18/17 Time: 09:30 Subjective Narrative: Patient seen and examined at bedside. No acute issues overnight. Overall, patient feels like she is slowly improving. No new issues or concerns in this AM per patient. Objective - Review of Systems Generalized/Overall Review: Reports: Weakness, Fatigue EENTM: Reports: No Symptoms Reported Respiratory: Reports: Cough, Shortness of Breath, Wheezing Cardiac: Reports: No Symptoms Reported Abdominal: Reports: No Symptoms Reported Genitourinary Symptoms: Reports: No Symptoms Reported Musculoskeletal Complaints: Reports: No Symptoms Reported Neurological: Reports: No Symptoms Reported Skin: Reports: No Symptoms Reported Endocrine: Reports: No Symptoms Reported Misc: All systems neg except as marked - Vitals Vitals: Last Vital Signs Temp 36.3 C L 07/20/17 10:12 Pulse 70 07/20/17 10:12 Resp 20 07/20/17 10:12 BP 144/84 07/20/17 10:12 Pulse Ox 93 07/20/17 10:12 - Exam Constitutional: Present: Alert, Oriented x3, Cooperative, No distress ENT Exam: Present: moist mucous membranes Respiratory: Present: other - Coarse breath sounds with diffuse wheezes bilaterally Cardiovascular/Chest: Present: regular rate, rhythm Abdomen: Present: soft, nontender, nondistended Extremity: Present: normal inspection Skin Exam: Present: warm/dry Neurologic: Present: alert, normal mood/affect, oriented x 3 Appearance: Present: appropriate appearance, appropriate insight, neat Eye contact: Present: cooperative, good eye contact, normal speech Thoughts: Present: normal thought pattern, no apparent hallucination Assessment/Plan Plan Narrative: Continue current cares including IV antibiotics and IV steroids. Patient appears to be clinically improving and hopefully can be discharged home within the next 1-2 days. - Problems/Diagnosis (1) Pneumonitis Problem: Acute (2) COPD (chronic obstructive pulmonary disease) Problem: Acute Qualifiers: COPD type: COPD with acute exacerbation Qualified Code(s): J44.1 - Chronic obstructive pulmonary disease with (acute) exacerbation
--- NOTE | 2017-07-21 10:57 | PN ---
Subjective - Date and Time Seen Date: 08/16/17 Time: 09:00 Subjective Narrative: Patient seen and examined at bedside. No acute issues overnight. Patient continues to feel SOB and has a disruptive cough so she is not sleeping well at night. Objective - Review of Systems Generalized/Overall Review: Reports: Weakness, Fatigue EENTM: Reports: No Symptoms Reported Respiratory: Reports: Cough, Shortness of Breath, Wheezing Cardiac: Reports: No Symptoms Reported Abdominal: Reports: No Symptoms Reported Genitourinary Symptoms: Reports: No Symptoms Reported Musculoskeletal Complaints: Reports: No Symptoms Reported Neurological: Reports: No Symptoms Reported Skin: Reports: No Symptoms Reported Endocrine: Reports: No Symptoms Reported Misc: All systems neg except as marked - Vitals Vitals: Last Vital Signs Temp 36.3 C L 07/20/17 10:12 Pulse 70 07/20/17 10:12 Resp 20 07/20/17 10:12 BP 144/84 07/20/17 10:12 Pulse Ox 93 07/20/17 10:12 - Exam Constitutional: Present: Alert, Oriented x3, Cooperative, No distress ENT Exam: Present: moist mucous membranes Respiratory: Present: other - Coarse breath sounds with diffuse expiratory wheezes bilaterally Cardiovascular/Chest: Present: regular rate, rhythm Abdomen: Present: soft, nontender, nondistended Extremity: Present: normal inspection Skin Exam: Present: warm/dry Neurologic: Present: alert, normal mood/affect, oriented x 3 Appearance: Present: appropriate appearance, appropriate insight, neat Eye contact: Present: cooperative, good eye contact, normal speech Thoughts: Present: normal thought pattern, no apparent hallucination Assessment/Plan Plan Narrative: Patient continues to have profound coarse breath sounds with noticeable conversational dyspnea. Continue IV antibiotics and steroids. Continue to monitor clinical course. Patient will likely need to remain inpatient for at least another 2-3 days. - Problems/Diagnosis (1) Pneumonitis Problem: Acute (2) COPD (chronic obstructive pulmonary disease) Problem: Acute Qualifiers: COPD type: COPD with acute exacerbation Qualified Code(s): J44.1 - Chronic obstructive pulmonary disease with (acute) exacerbation
--- NOTE | 2017-07-21 10:58 | PN ---
Subjective - Date and Time Seen Date: 07/19/17 Time: 11:15 Subjective Narrative: Patient seen and examined at bedside. No acute issues overnight. Patient continues to complain of a disruptive cough but admits that overall she continues to feel better each day. Objective - Review of Systems Generalized/Overall Review: Reports: Weakness, Fatigue EENTM: Reports: No Symptoms Reported Respiratory: Reports: Cough, Shortness of Breath, Wheezing Cardiac: Reports: No Symptoms Reported Abdominal: Reports: No Symptoms Reported Genitourinary Symptoms: Reports: No Symptoms Reported Musculoskeletal Complaints: Reports: No Symptoms Reported Neurological: Reports: No Symptoms Reported Skin: Reports: No Symptoms Reported Endocrine: Reports: No Symptoms Reported Misc: All systems neg except as marked - Vitals Vitals: Last Vital Signs Temp 36.3 C L 07/20/17 10:12 Pulse 70 07/20/17 10:12 Resp 20 07/20/17 10:12 BP 144/84 07/20/17 10:12 Pulse Ox 93 07/20/17 10:12 - Exam Constitutional: Present: Alert, Oriented x3, Cooperative, No distress ENT Exam: Present: moist mucous membranes Respiratory: Present: other - Coarse breath sounds bilaterally with expiratory wheezes noted diffusely although improved since admission Cardiovascular/Chest: Present: regular rate, rhythm Abdomen: Present: soft, nontender, nondistended Skin Exam: Present: warm/dry Neurologic: Present: alert, normal mood/affect, oriented x 3 Appearance: Present: appropriate appearance, appropriate insight, neat Eye contact: Present: cooperative, good eye contact, normal speech Thoughts: Present: normal thought pattern, no apparent hallucination Assessment/Plan Plan Narrative: Continue current cares with IV antibiotics and IV steroids. Continue scheduled breathing treatments. Plan for discharge home in a.m. as long as patient continues to improve. - Problems/Diagnosis (1) Pneumonitis Problem: Acute (2) COPD (chronic obstructive pulmonary disease) Problem: Acute Qualifiers: COPD type: COPD with acute exacerbation Qualified Code(s): J44.1 - Chronic obstructive pulmonary disease with (acute) exacerbation
== END 2017-07-20 12:15 | disposition home or self-care (01) | DRG 190 ==
LOC: ER 13:30 → MS 15:40
PROVIDERS: ADMIT Internal Medicine; ATTEND Internal Medicine
DX: J44.0 Chronic obstructive pulmonary disease with (acute) lower respiratory infection (principal); J18.9 Pneumonia, unspecified organism; C34.11 Malignant neoplasm of upper lobe, right bronchus or lung; N17.9 Acute kidney failure, unspecified; J44.1 Chronic obstructive pulmonary disease with (acute) exacerbation; I10 Essential (primary) hypertension; E78.5 Hyperlipidemia, unspecified; Z95.5 Presence of coronary angioplasty implant and graft; Z79.82 Long term (current) use of aspirin; Z23 Encounter for immunization
CPT/HCPCS: 36415; 71020; 71275; 80048; 80053; 83735; 84484; 85025; 85379; 87040; 87070; 90686; 93005; 94640; 96365; 96372; 99285; G0008